=== PATIENT | male | born 1985 | race Caucasian/White ===

== ENCOUNTER → 2017-06-28 | Outpatient (CLI) | payer OTHER ==
[~2017-06-28] MED LIST: AMITRIPTYLINE H10 M3 PO; AMITRIPTYLINE H25 M2 PO; CARISOPRODOL350 MG PO; FLEXERIL PO; HYDROCODONE-AP1 EAC6 PO; HYDROCODONE-APA1 TA1 PO; IBUPROFEN 800800 M1 PO; LISINOPRIL-HCT1 EAC2 PO; LISINOPRIL-HCT1 EACH PO; MEDROLDOSEPACK PO; MOBIC15 MG PO; NEURONTIN300 MG PO; PREDNISONE 20 M20 MG PO; TRAMADOL 50 MG50 MG PO
--- NOTE | 2017-07-06 08:41 | PAINCON ---
[address] [address] PAIN MANAGEMENT CONSULTATION Name: PANDA KNOTT Room: [facility] Dea#: [id number] Admission: 06/28/17 Attend Phys: Edison Dangelo MD Discharge: Date of : 81 Report #: [id number] THIS REPORT FOR: //name// CC: Jade Dangelo DATE OF SERVICE: 06/28/2017 FOLLOWUP COMPLAINT: Pain was about 90% better, but it has gotten worse. FOLLOWUP HISTORY: The patient is a 32-year-old gentleman who has been seen in the past in the pain clinic because of lumbar radiculopathy. He has undergone epidural steroid injections. He gleaned greater than 90% improvement after the last injection. He noted about 2 weeks ago that he was lifting some heavy objects at work. He did noted onset and return of the pain. It radiates down into the posterior portion of his right leg. He is experiencing numbness, tingling and weakness in this area as well. Notes that the pain is worse with certain activities. He is sleeping poorly. He did find out amitriptyline was helpful, but has run out of this medication. He feels that the Mobic medicine is beneficial as well. He denies any new bowel or bladder dysfunction. Continues to work in spite of the pain. PHYSICAL EXAMINATION: VITAL SIGNS: Blood pressure 151/92, pulse 91, respiratory rate 16, room air saturation 98%, temperature 98.2. Height 6 feet 2 inches, weight 275 pounds, BMI is 35. HEENT: Unremarkable. CHEST: Clear to auscultation. HEART: Regular rate. ABDOMEN: Nontender. EXTREMITIES: There is no lumbar, no step off changes noted in the lower portion of back. The patient has pain and discomfort with pain radiating down the right leg in the L5-S1 distribution. Straight leg raising is positive. Muscle strength is judged to be 5/5. Deep tendon reflexes +2, ankle jerks +1. MEDICATIONS: Ibuprofen 800 mg t.i.d. p.r.n., lisinopril/hydrochlorothiazide one tablet daily, Mobic 15 mg daily, amitriptyline 10 mg 2 tablets at bedtime. IMPRESSION: 1. Lumbar radiculopathy, L5-S1 distribution with MRI showing paracentral disk protrusion and narrowing of the right lateral recess. There is a mass effect on the S1 nerve root. 2. Lumbar radiculopathy with L3-L4 annular tear and AP diameter of 5 mm. 3. Lumbar annular tear and central disk protrusion 7 mm AP. 4. [place] [address] PAIN MANAGEMENT CONSULTATION Name: PANDA KNOTT [id number] Admission: 06/28/17 Attend Phys: Edison Dangelo MD Discharge: Date of : 81 Report #: [id number] RECOMMENDATIONS: We discussed treatment options with the patient. Risks and benefits of an epidural steroid injection were again reviewed. We will have the patient take Mobic 15 mg daily. We will increase his Elavil from 20 mg p.o. every day to 25 mg. This is one tablet, I think it would be more efficacious and easier to take the one pill versus two. We will petition his insurance company for an epidural steroid injection to help decrease the pain and discomfort. He has noted a greater than 90% improvement after the pain in the past. He has noted worsening of his pain over the last couple of weeks secondary to lifting heavy objects at work and note of a pain returned. He rates it as a 7/10 at this juncture. He will follow up in the pain clinic after he has been pre-certified by his insurance company. We would like to thank you for letting us participate in his care. We hope he continues to improve. <ELECTRONICALLY SIGNED> By: Edison Dangelo MD 07/06/17 0841 [id number]. Reginaldo Dangelo MD /ROWAN
== END ==
LOC: M.PC
DX: M54.17 Radiculopathy, lumbosacral region (principal); M51.36 Other intervertebral disc degeneration, lumbar region; M51.26 Other intervertebral disc displacement, lumbar region; I10 Essential (primary) hypertension

== ENCOUNTER → 2017-10-20 | Outpatient (CLI) | payer OTHER ==
--- NOTE | 2017-10-26 08:18 | PAINCON ---
[address] [address] PAIN MANAGEMENT CONSULTATION Name: NIKOSPANDA Room: [facility] Dea#: [id number] Admission: 10/20/17 Attend Phys: Edison Dangelo MD Discharge: Date of : 81 Report #: [id number] THIS REPORT FOR: //name// CC: Jade Dangelo DATE OF SERVICE: 10/20/2017 FOLLOWUP COMPLAINT: Things were going well until May 2017, I lift something and it kind of made my back worse. FOLLOWUP HISTORY: The patient is a very pleasant 32-year-old gentleman. As you recall, he has some problems with his low back. He has undergone epidural steroid injections as a result of back pain. Normally his pain, which radiates down the posterior portion of his right leg. He has had some weakness, tingling, numbness in this area. Pain is increased to 6/10 per day. He continues to sleep poorly because of this pain. Finds that Elavil, gabapentin, meloxicam, and tramadol have been efficacious. Denies any new bowel or bladder dysfunction. He is now working at the [employer]. This workload has attributed to worsening of pain and discomfort in his low back. He would like to proceed with another epidural steroid injection. He would also like to have his medications renewed. ALLERGIES: No known drug allergies. CURRENT MEDICATIONS: Amitriptyline 25 mg at bedtime, Neurontin 300 mg 1 p.o. t.i.d., ibuprofen 800 mg q. 8 hours, lisinopril/hydrochlorothiazide 10/12.5 mg, meloxicam 15 mg 1 p.o. daily, tramadol 50 mg 1 p.o. b.i.d. to t.i.d. PAIN CLINIC ASSESSMENT: 1. The patient has not been treated for osteoarthritis or rheumatoid arthritis. 2. Height 6 feet 2 inches, weight 266 pounds, BMI is 34. 3. Vital signs: Blood pressure 135/99, heart rate 100, respiratory rate 16, room air saturation 96%, temperature 98.3. 4. Pain score 6/10. 5. Fall risk. The patient has not fallen in the last 3 months. 6. The patient on blood thinner. The patient is not on a blood thinner. 7. History of hypertension. The patient is not being treated for hypertension. 8. Opioid therapy greater than 6 weeks. The patient is not on opioid therapy. 9. Risk assessment tool. 10. Functional assessment tool. 11. Recreational drug use. The patient denies recreational drug use. 12. Tobacco. The patient denies use of tobacco. 13. Alcohol: The patient denies use [place] [address] PAIN MANAGEMENT CONSULTATION Name: PANDA KNOTT Room: [facility]#: [id number] Admission: 10/20/17 Attend Phys: Edison Dangelo MD Discharge: Date of : 81 Report #: [id number] PHYSICAL EXAMINATION: GENERAL: The patient is a well-developed white male. He appears his stated age. He is alert and oriented x 3. Affect is appropriate. Speech is fluent. HEENT: Normocephalic, atraumatic. Extraocular eye muscles intact. NECK: Without JVD or bruits. HEART: Regular rate without murmur. ABDOMEN: Nontender. MUSCULOSKELETAL: Without scoliosis, kyphosis, or lordosis. Upper extremity, muscle strength 5/5 for the major muscle groups. Sensory exam was within normal limits. Lower extremity, the patient has pain and discomfort in the lower portion of his back with pain radiating down the L5-S1 nerve root distribution with numbness, weakness, and tenderness involving the right leg. Major muscle groups of the lower extremity, judged to be 5/5 with muscle symmetry. IMPRESSION: 1. Lumbar radiculopathy involving the L5-S1 nerve root with the MRI showing paracentral disk protrusion and narrowing of the right lateral recess. There is mass effect on the S1 nerve root. 2. Lumbar radiculopathy with L3-L4 annular tear and AP diameter of 5 mm. 3. Lumbar annular tear and central disk protrusion, 7 mm AP. 4. Hypertension. RECOMMENDATIONS: We discussed treatment options with the patient. At this juncture, he has gleaned significant benefit from epidural steroid injections. He was doing quite well until May of last year. He lifted an item and noted return of pain and discomfort. He has been having quite a bit of pain since that time. He rates his pain as 5-6/10 per day at this juncture. He continues to work. He finds that activities of daily living as well as ____ secondary to the pain and discomfort he is feeling. He has returned to the pain clinic with a hope of undergoing an epidural steroid injection to help improve his pain level as well as improve his ability to perform his job in activities of daily living. We have discussed the process of possible complication of the procedure, which could include but are not limited to infection, increased muscle soreness, headache, bleeding, nerve damage, paralysis, spinal headache. He elects to proceed. PROCEDURE NOTE: The patient was placed in the prone position. Fluoroscopy was used to identify the L5-S1 area. Anterior, posterior as well as lateral viewing with a fluoroscopy machine was provided. His back had been sterilely prepped with Betadine and infiltrated with 0.25% bupivacaine. A 17-gauge Tuohy with loss of resistance technique was used to gain access to the epidural space. There was no CSF, heme or paresthesia. Total of 80 mg Depo-Medrol, 40 mg triamcinolone, and 2 mL of 0.25% bupivacaine was injected. The patient tolerated the procedure well. There were no complications. He remained in the pain clinic for an appropriate amount of time. A Band-Aid was placed. There was no bleeding. A script for Elavil, Mobic, tramadol, [place] [address] PAIN MANAGEMENT CONSULTATION Name: PANDA KNOTT Room: [facility]#: [id number] Admission: 10/20/17 Attend Phys: Edison Dangelo MD Discharge: Date of : 81 Report #: [id number] rewritten. The patient will call us if he has any problems. We would like to thank you for letting us participate in his care. We hope he continues to improve. <ELECTRONICALLY SIGNED> By: Edison Dangelo MD 10/26/17 0818 [id number]. Reginaldo Dangelo MD /PMT
== END | disposition home or self-care (01) ==
LOC: M.PC 01:58
DX: M51.16 Intervertebral disc disorders with radiculopathy, lumbar region (principal); I10 Essential (primary) hypertension; Z79.899 Other long term (current) drug therapy

== ENCOUNTER → 2018-02-21 | Outpatient (CLI) | payer OTHER ==
--- NOTE | 2018-02-22 16:42 | PAINCON ---
[address] [address] PAIN MANAGEMENT CONSULTATION Name: PANDA KNOTT Room: [facility] CLAUDIA Malin#: [id number] Admission: 02/21/18 Attend Phys: Edison Dangelo MD Discharge: Date of : 81 Report #: [id number] THIS REPORT FOR: //name// CC: Jade Dangelo DATE OF SERVICE: 02/21/2018 FOLLOWUP COMPLAINT: I have noticed some pain down in my left leg at this point. FOLLOWUP HISTORY: The patient is a 32-year-old gentleman, who has been seen in the pain clinic because of lumbar radiculopathy involving his low back area in the L5-S1 distribution. The patient has noted over the last few weeks some pain and discomfort in the lower portion of his back, which has radiated down into his left leg. He had been experiencing most of his pain and discomfort on the right hand side. He has returned today and would like to proceed with an epidural steroid injection. He has had an MRI of his back. He had an outside MRI clinic/company. He does have a disk present. He has not noted any change in bowel or bladder dysfunction. He rates his discomfort as a 2 on the right side and a 5 on the left side. He feels that the last epidural steroid injection helped quite a bit on the right side. Things are still remaining reasonably helpful in that area. CURRENT MEDICATIONS: Amitriptyline 25 mg at bedtime, Neurontin 300 mg 1 p.o. t.i.d., ibuprofen 800 mg, lisinopril/hydrochlorothiazide 10/12.5 mg, Meloxicam [address] of ibuprofen, and tramadol 50 mg 1 p.o. b.i.d. to t.i.d. ALLERGIES: No known drug allergies. PAIN CLINIC ASSESSMENT: 1. The patient is not being treated for osteoarthritis or rheumatoid arthritis. 2. Pain intensity on right side is 2/10 and left side pain is 5/10. 3. Fall risk. The patient has not fallen in the last 3 months. 4. Blood thinner. The patient is not on a blood thinning medication. 5. Hypertension. The patient is being treated for hypertension. 6. Opioid therapy greater than 6 weeks. The patient is not on a regular opioid medication regimen. 7. Risk assessment tool. 8. Functional assessment tool. 9. Recreational drug use. The patient denies use of recreational drugs. 10. Tobacco: The patient denies use of tobacco. 11. Alcohol: The patient denies use of alcoholic beverages. PHYSICAL EXAMINATION: GENERAL: The patient is well-developed, well-nourished white male. He appears his stated age. He is alert and oriented x 3. [place] [address] PAIN MANAGEMENT CONSULTATION Name: PANDA KNOTT [facility] [id number] Admission: 02/21/18 Attend Phys: Edison Dangelo MD Discharge: Date of : 81 Report #: [id number] Speech is fluent. VITAL SIGNS: Blood pressure is 131/89, heart rate is 96, respiratory rate is 16, room air saturation is 98%, and temperature is 98.2. HEENT: Normocephalic, atraumatic. Extraocular eye muscles intact. Sclerae nonicteric. Mucous membranes are moist. NECK: Without JVD or bruits. HEART: Regular rate. S1, S2, without murmur. ABDOMEN: Nontender. MUSCULOSKELETAL: Without scoliosis, kyphosis, or lordosis. Upper extremity muscle strength is judged to be 5/5 with symmetry without sensory change. Low back area, the patient has pain and discomfort in the lower portion of his back with pain that is radiating down to the L5-S1 distribution on the right, judged to be 2/10 and on the left, which is new as a 5/10 involving the leg with some weakness, numbness, and tenderness involving his leg. The muscle strength is judged to be 5/5 for the lower extremity with symmetry. IMPRESSION: 1. Lumbar radiculopathy involving the L5-S1 nerve root on the MRI, which showed a paracentral disk narrowing on the right lateral recess and mass effect on the L5-S1 nerve root. 2. Lumbar radiculopathy at L3-L4, annular tear with an AP diameter of 5 mm. 3. Lumbar annular tear and central disk protrusion 7 mm AP with hypertension. RECOMMENDATIONS: The patient has a new MRI. There is some evidence of some bulging disks at the L4-L5 and L3-L4 areas, some is noted at the L5-S1 area as well, somewhat difficult to read MRI secondary to his granularity. We will await the final reading from the radiologist. The patient has pain and discomfort, which is radiating down into the left leg with numbness, weakness, and tenderness. At this juncture, we will proceed after precertification from his insurance company with an epidural steroid injection in the area of the left paraspinous area to improve the patient's pain and decrease his discomfort. He is aware of the possible complications, which could include infection, bleeding, increased muscle soreness, headache, worsening of pain, spinal headache, and he elects to proceed. PROCEDURE NOTE: The patient was taken to the procedure area. He was assisted in getting on the table. He was placed in the prone position. Fluoroscopy was then used anterior, posterior as well as lateral viewing to make appropriate placement of the injection. A pillow was placed under the abdomen to help bolster and improve his positioning. His back was sterilely prepped with a Betadine solution. A 0.25% bupivacaine was infiltrated. A 17-gauge Tuohy using a left paraspinous approach was used. After appropriate placement, a total of 80 mg of Depo-Medrol, 40 mg of triamcinolone was injected. The patient stated that he did feel some pain/pressure radiating down the posterior portion of both legs at the time of the injection. This was not painful. It helped the patient. The patient felt that again this was the area [place] [address] PAIN MANAGEMENT CONSULTATION Name: PANDA KNOTT Room: [facility]#: [id number] Admission: 02/21/18 Attend Phys: Edison Dangelo MD Discharge: Date of : 81 Report #: [id number] from the nerve root irritation. He remained in the pain clinic for an appropriate amount of time. Band-Aid was placed. There was no bleeding. He will follow up in the near future. The patient has also been given a script for physical therapy. We would like to thank you for letting us to participate in his care. We hope he continues to improve. <ELECTRONICALLY SIGNED> By: Edison Dangelo MD 02/22/18 1642 [id number] [id number]. Reginaldo Dangelo MD /[facility]
== END | disposition home or self-care (01) ==
LOC: M.PC 04:25
DX: M51.16 Intervertebral disc disorders with radiculopathy, lumbar region (principal); G89.29 Other chronic pain; I10 Essential (primary) hypertension; Z98.890 Other specified postprocedural states; Z79.899 Other long term (current) drug therapy